=== PATIENT | male | born 1955 ===

== ENCOUNTER 2024-03-04 04:19 | Day surgery (SDC) | payer OTHER, BC ==
[2024-03-03 11:38] VITALS: BMI 22.5
[2024-03-04] MEDS ORDERED: PROPOFOL 40 ML ONE (17:52)
[2024-03-04] MEDS: ceFAZolin SODIUM 1 GM VIAL IVPB ONE ×2 (18:00)
[2024-03-04] MEDS ORDERED: ONDANSETRON 4 MG/2 ML VIAL IVPUSH PRN (18:59)
[2024-03-04] MEDS: LACTATED RINGERS SOLUTION 1,000 ML IV SCH (20:21)
[2024-03-05 05:17] VITALS: BP 129/68; PULSE 70; RESP 14; TEMP 97.2
[2024-03-11 23:10] LABS: CA OXALATE MONOHYDR. 80 % (.); SIZE 4x3 mm (.); WEIGHT 66 mg (.)
== END 2024-03-04 23:22 | disposition home or self-care (01) ==
LOC: JASU-SURG 04:19 → JASUSAT 04:19 → J6S 20:46 → JASUSAT 23:22
PROVIDERS: ATTEND Urology
PROC: 0TC68ZZ Extirpation of Matter from Right Ureter, Via Natural or Artificial Opening Endoscopic (ICD-10-PCS; principal; 2024-03-04 17:30)
PROC: 0T768DZ Dilation of Right Ureter with Intraluminal Device, Via Natural or Artificial Opening Endoscopic (ICD-10-PCS; 2024-03-04 17:30)
PROC: BT1DYZZ Fluoroscopy of Right Kidney, Ureter and Bladder using Other Contrast (ICD-10-PCS; 2024-03-04 17:30)
DX: N20.1 Calculus of ureter (principal)
CPT/HCPCS: 36415; 76000-TC-FY; 82360; 82962; 88300-TC; 94760; C1758; C2617